=== PATIENT | male | born 1965 | race Caucasian/White ===

== ENCOUNTER 2018-06-16 13:31 | Emergency (ER) | payer OTHER ==
--- NOTE | 2018-06-16 13:58 | ER Document Report ---
HPI - HPI Pain Level: 4 Notes: Patient is a 52-year-old male who presents to the ED complaining of posterior lateral inferior rib pain status post injury 2 days ago. Patient states that he was walking down outdoor steps of an establishment when he was on the last 2 steps and slipped and hit his left side of his back off of the steps. Patient states he did not hit his head or lose consciousness. Patient states that he was sore thereafter, but was taking Motrin which seemed to help. Patient states that he was doing much better until last night when he twisted and felt a pop in that area. Patient states that he has had pain since then. Patient states that he does feel soreness in his left flank as well. Patient states that he has been eating and drinking without any difficulties. He has been urinating normally without any obvious hematuria and has been having normal bowel movements. He is not on any blood thinners. He does have a history of hypertension. Denies any headache, fever, head injury, neck pain, changes in vision/speech/mentation/hearing, URI, sore throat, chest pain, palpitations, syncope, cough, shortness of breath, wheeze, dyspnea, abdominal pain, nausea/ vomiting/diarrhea, urinary retention, dysuria, hematuria, loss of control of bowel or bladder, numbness/tingling, saddle anesthesia, muscle paralysis/ weakness, or rash. - ROS Systems Reviewed and Negative: Yes All other systems reviewed and negative Past Medical History - Social History Smoking Status: Never Smoker Family History: Reviewed & Not Pertinent - Past Medical History Cardiac Medical History: Reports: Hx Hypertension Denies: Hx Coronary Artery Disease, Hx Heart Attack Pulmonary Medical History: Denies: Hx Asthma, Hx Bronchitis, Hx COPD, Hx Pneumonia Neurological Medical History: Denies: Hx Cerebrovascular Accident, Hx Seizures Renal/ Medical History: Reports: Hx Kidney Stones GI Medical History: Musculoskeletal Medical History: Reports Hx Arthritis - Rt & Lt shoulders, knees Infectious Medical History: Past Surgical History: Reports: Hx Kidney (Renal Surgery) - kidney stones, Hx Orthopedic Surgery - Left knee, Right shoulder, Hx Tonsillectomy. Denies: Hx Pacemaker. Comment Only: Hx Abdominal Surgery - 2 hernia - Immunizations Hx Diphtheria, Pertussis, Tetanus Vaccination: Yes Vertical Provider Document - CONSTITUTIONAL Agree With Documented VS: Yes Notes: PHYSICAL EXAMINATION: GENERAL: Well-appearing, well-nourished and in no acute distress. LUNGS: Breath sounds clear to auscultation bilaterally and equal. No wheezes rales or rhonchi. HEART: Regular rate and rhythm without murmurs, rubs, gallops. ABDOMEN: Soft, nontender, nondistended abdomen. No guarding, no rebound. No masses appreciated. Normal bowel sounds present. No CVA tenderness bilaterally. No pulsatile mass Musculoskeletal: LE's b/l: FROM to passive/active. Strength 5+/5. No deficits noted. No bony tenderness of extremities. Back: + ecchymosis to the posteroinferior ribs. FROM to passive/active. Strength 5+/5. No vertebral point tenderness, stepoffs, or deformities. No other bony tenderness, erythema, swelling. SLR negative b/l. + tenderness to the left posteroinferior ribs. No SI jt tenderness. No foot drop. + tenderness to the left flank area. Extremities: No cyanosis, clubbing, or edema b/l. Peripheral pulses 2+. Capillary refill less than 2 seconds. NEUROLOGICAL: Normal speech, normal gait. Normal sensory, motor exams. Reflexes 2+ b/l. PSYCH: Normal mood, normal affect. SKIN: Warm, Dry, normal turgor, no rashes or lesions noted. - INFECTION CONTROL TRAVEL OUTSIDE OF THE [place] IN LAST 30 DAYS: No Course - Re-evaluation Re-evalutation: 06/16/18 14:48 Patient is an afebrile, well-hydrated, 52-year-old male who presents to the ED with posterior lateral inferior rib pain, suspect contusion. Vitals are acceptable without any significant tachycardia, tachypnea, or hypoxia. PE is otherwise unremarkable for any focal neurological deficits. X-ray was unremarkable for any acute pathology. Lungs are clear to auscultation bilaterally. Patient's abdomen is soft and nontender. A FAST exam was performed by Dr. Smith and was unremarkable for any acute pathology. Dr. Smith is in agreement with dispo/plan. Patient is nontoxic-appearing and is tolerating p.o. without difficulties. No other labs or imaging warranted at this time based on H&P. Low suspicion for any pneumothorax, fracture, sepsis, acute abdomen, disc herniation causing severe spinal stenosis, spinal abscess, AAA, or other acute systemic emergent condition at this time. Patient is aware that his condition can change from initial presentation and he needs to monitor symptoms closely and seek medical attention with any acute changes. I will send him home with a prescription for Lidoderm patches and naproxen. Conservative measures otherwise for symptoms. Recheck with your PCM in 3-5 days. Return to the ED with any worsening/concerning symptoms otherwise as reviewed in discharge. Patient is in agreement. - Vital Signs Vital signs: Temp Pulse Resp BP Pulse Ox 98.5 F 85 18 142/86 H 97 06/16/18 13:36 06/16/18 13:36 06/16/18 13:36 06/16/18 13:36 06/16/18 13:36 Discharge - Discharge Clinical Impression: Rib pain on left side Condition: Stable Disposition: HOME, SELF-CARE Instructions: Rib Contusion ([facility]) Additional Instructions: Rest, Ice, Compression Tylenol/ibuprofen as needed Light stretches daily Strength exercises as able Moist heat and massage may help F/u with your PCP in 3-5 days for a recheck Consider consult(s) with Orthopedics/physical therapy for ongoing/worsening symptoms Return to the ED with any worsening symptoms and/or development of fever, headache, chest pain, palpitations, syncope, shortness of breath, trouble breathing, abdominal pain, n/v/d, blood in stool/urine, loss of control of bowel /bladder, urinary retention, muscle weakness/paralysis, saddle anesthesia, numbness/tingling, or other worsening symptoms that are concerning to you. Prescriptions: Lidocaine [Lidoderm] 1 each TP DAILY #30 adh..patch Naproxen 500 mg PO BID PRN #30 tablet PRN Reason: Forms: Elevated Blood Pressure Referrals: ADELE OCHOA MD [Primary Care Provider] - Follow up in 3-5 days [facility] [Provider Group] - Follow up as needed
--- NOTE | 2018-06-16 14:47 | RADIOLOGY REPORT (SQ) ---
EXAM DESCRIPTION: RIBS LEFT W/PA CHEST COMPLETED DATE/TIME: 06/16/2018 2:20 pm REASON FOR STUDY: left posterolateral rib pain s/p injury COMPARISON: None. TECHNIQUE: Frontal view of the chest and additional views of the left ribs acquired. NUMBER OF VIEWS: PA chest. Four view rib detail. LIMITATIONS: None. FINDINGS: FRONTAL CXR: No acute infiltrates or effusions. No pneumothorax. RIBS: No displaced rib fractures. No lytic or blastic bony lesions. OTHER: No other significant finding. IMPRESSION: No acute disease. No acute left rib fracture seen. TECHNICAL DOCUMENTATION: JOB ID: [id number] 2010 [employer]- All Rights Reserved Reading location - IP/workstation name: [email or web address]
[2018-06-16 15:22] VITALS: BP 110/74
== END 2018-06-16 15:27 | disposition home or self-care (01) ==
LOC: ER 13:31
DX: S20.229A Contusion of unspecified back wall of thorax, initial encounter (principal); R07.81 Pleurodynia; X58.XXXA Exposure to other specified factors, initial encounter; R19.8 Other specified symptoms and signs involving the digestive system and abdomen; I10 Essential (primary) hypertension
CPT/HCPCS: 99283

== ENCOUNTER → 2019-07-10 | Outpatient (CLI) | payer OTHER ==
--- NOTE | 2019-07-10 14:51 | RADIOLOGY REPORT (SQ) ---
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 The route of agent administration: Intravenous. ADDITIONAL DRUGS AND DOSES: None. TECHNIQUE: Routine delayed images at 3 hours post radionuclide injection acquired of the bony skelet on including anterior and posterior whole-body projections and additional focused images as needed. LIMITATIONS: None. FINDINGS: BONES: There is focal uptake in the left 10th rib and in the right patella. KIDNEYS: Symmetric excretion without obstruction. OTHER: No other significant finding. IMPRESSION: Focal uptake in the left 10th rib and in the right patella. In May 2018 the patient jose d left rib trauma that was read as negative. It is possible that there was an occult injury. The up take in the patella may be degenerative. The overall appearance of the scan does not suggest metasta tic disease to bone, but metastases cannot entirely be excluded. COMMENT: Quality measure 147: Current bone scan is compared with any available plain radiographs, p rior bone scans, and CT/MRI. TECHNICAL DOCUMENTATION: JOB ID: [id number] [employer]- All Rights Reserved Reading location - IP/workstation name: [email or web address]
== END ==
LOC: RAD 08:07
PROVIDERS: ATTEND Radiology Radiation Oncology
DX: C61 Malignant neoplasm of prostate (principal)
CPT/HCPCS: 78306; A9561; Q9969

== ENCOUNTER 2020-04-30 10:21 | Emergency (ER) | payer OTHER ==
[2020-04-30] MEDS ORDERED: KETOROLAC TROMETHAMINE INJ/PF 30 MG/1 ML SDV IV ONE (11:06)
--- NOTE | 2020-04-30 11:08 | ER Document Report ---
ED General - General Chief Complaint: Productive Cough Stated Complaint: COUGH Time Seen by Provider: 04/30/20 10:51 Primary Care Provider: [facility] [Provider Group] - Follow up in 3-5 days IRAJ VILLALBA PA [Primary Care Provider] - Follow up as needed Mode of Arrival: Ambulatory Information source: Patient Notes: Patient presents with cough for the past 10 days with postnasal drip. Patient complains of sore throat. Patient complains of left flank pain that started yesterday. Patient denies any fever nausea or vomiting. Patient does complain of some mild shortness of breath. TRAVEL OUTSIDE OF THE [place] IN LAST 30 DAYS: No - HPI Onset/Duration: Worse Quality of pain: Achy, Sharp Pain Level: 5 Associated symptoms: Nonproductive cough, Shortness of breath. denies: Chest pain, Fever, Nausea, Vomiting Exacerbated by: Denies Relieved by: Denies Similar symptoms previously: No Recently seen / treated by doctor: No - Related Data Allergies/Adverse Reactions: Shellfish * [Shellfish] Adverse Reaction (Intermediate, Verified 04/30/20 11:43) IVP Dye Allergy (Severe, Uncoded 05/25/11 14:48) Anaphylaxis Past Medical History - General Information source: Patient - Social History Smoking Status: Never Smoker Frequency of alcohol use: None Drug Abuse: None Occupation: Administration Lives with: Family Family History: Reviewed & Not Pertinent - Past Medical History Cardiac Medical History: Reports: Hx Hypertension, Other - Tachycardia Pulmonary Medical History: Neurological Medical History: Denies: Hx Cerebrovascular Accident, Hx Seizures Renal/ Medical History: Reports: Hx Kidney Stones. Denies: Hx Peritoneal Dialysis Malignancy Medical History: Reports Hx Prostate Cancer GI Medical History: Musculoskeletal Medical History: Reports Hx Arthritis - Rt & Lt shoulders, knees, Reports Hx Gout Infectious Medical History: Past Surgical History: Reports: Hx Kidney (Renal Surgery) - kidney stones, Hx Orthopedic Surgery - Left knee, Right shoulder, Hx TonsillectomyComment Only: Hx Abdominal Surgery - 2 hernia - Immunizations Hx Diphtheria, Pertussis, Tetanus Vaccination: Yes Review of Systems - Review of Systems Constitutional: No symptoms reported. denies: Fever EENT: No symptoms reported Cardiovascular: No symptoms reported. denies: Chest pain Respiratory: Cough, Short of breath Gastrointestinal: No symptoms reported. denies: Abdominal pain, Nausea, Vomiting Genitourinary: Flank pain. denies: Dysuria Male Genitourinary: No symptoms reported Musculoskeletal: Back pain Skin: No symptoms reported Hematologic/Lymphatic: No symptoms reported Neurological/Psychological: No symptoms reported Physical Exam - Vital signs Vitals: Temp Pulse Resp BP Pulse Ox 98.3 F 88 20 145/95 H 94 04/30/20 10:35 04/30/20 10:35 04/30/20 10:35 04/30/20 10:35 04/30/20 10:35 - General General appearance: Appears well, Alert In distress: None - HEENT Head: Normocephalic, Atraumatic Eyes: Normal Conjunctiva: Normal Mouth/Lips: Normal Mucous membranes: Normal Neck: Normal, Supple. No: Lymphadenopathy - Respiratory Respiratory status: No respiratory distress Chest status: Nontender Breath sounds: Nonproductive cough. No: Rales, Rhonchi, Stridor, Wheezing Chest palpation: Normal - Cardiovascular Rhythm: Regular Heart sounds: S1 appreciated, S2 appreciated - Abdominal Inspection: Morbidly Obese Distension: No distension Bowel sounds: Normal Tenderness: Nontender Organomegaly: No organomegaly - Back Back: CVA tenderness - left - Extremities General upper extremity: Normal inspection, Normal strength General lower extremity: Normal inspection, Normal strength - Neurological Neuro grossly intact: Yes Cognition: Normal Chaya Coma Scale Eye Opening: Spontaneous Chaya Coma Scale Verbal: Oriented [place] Coma Scale Motor: Obeys Commands Chaay Coma Scale Total: 15 - Psychological Associated symptoms: Normal affect, Normal mood - Skin Skin Temperature: Warm Skin Moisture: Dry Skin Color: Normal Course - Re-evaluation Re-evalutation: 04/30/20 13:19 Patient's pain controlled at this time. Patient does have a ureteral stone noted on CT imaging. Patient without any fever, leukocytosis, or UTI. Patient does have mild elevation in his renal function tests. Will give some IV fluids and encourage outpatient follow-up with urology for recheck. Patient presents with nonobstructing kidney stone. Patient improved in the emergency department with IV morphine, Toradol, and antiemetics. Patient stable for outpatient management and followup with urology. Will discharge with oral pain medications and Flomax. Patient instructed to return if symptoms do not improve. 04/30/20 13:20 The patient was evaluated during the global Covid 19 pandemic, and that diagnosis was suspected/considered upon their initial presentation. Their evaluation, treatment and testing was consistent with current guidelines for patients who present with complaints or symptoms that may be related to Covid 19. 04/30/20 14:40 Patient tachycardic at discharge although does state that he has not yet taken his Cardizem today which he takes for rate control. Patient without any other symptoms. Patient encouraged to take his medication as soon as he gets home. 04/30/20 15:13 RN states that patient called as the pharmacy that his medicines were sent to is closed until Saturday, patient is requesting that prescriptions be sent to [facility] instead. RN encouraged to call the initial pharmacy to cancel the initial prescriptions that were E scribed there. - Vital Signs Vital signs: Temp Pulse Resp BP Pulse Ox 97.5 F 118 H 18 137/90 H 93 04/30/20 14:37 04/30/20 14:37 04/30/20 14:37 04/30/20 14:37 04/30/20 14:37 - Laboratory Result Diagrams: 04/30/20 11:37 04/30/20 11:37 Laboratory results interpreted by me: 04/30/20 04/30/20 11:37 11:56 Chloride 108 H Creatinine 1.39 H Est GFR (MDRD) Non-Af 54 L Urine Protein 30 H Urine Blood LARGE H Urine Ascorbic Acid 40 H Labs- All tests 24 hr 04/30/20 04/30/20 04/30/20 11:37 11:37 11:37 WBC 6.8 RBC 4.55 Hgb 14.7 Hct 41.9 MCV 92 MCH 32.4 MCHC 35.2 RDW 13.1 Plt Count 253 Lymph % (Auto) 21.8 [place] % (Auto) 8.6 Eos % (Auto) 1.1 Baso % (Auto) 0.8 Absolute Neuts (auto) 4.6 Absolute Lymphs (auto) 1.5 Absolute Monos (auto) 0.6 Absolute Eos (auto) 0.1 Absolute Basos (auto) 0.1 Seg Neutrophils % 67.7 Sodium 138.5 Potassium 4.7 Chloride 108 H Carbon Dioxide 22 Anion Gap 9 BUN 14 Creatinine 1.39 H Est GFR ( Amer) > 60 Est GFR (MDRD) Non-Af 54 L Glucose 107 Calcium 9.2 Urine Color Urine Appearance Urine pH Ur Specific [place] Urine Protein Urine Glucose (UA) Urine Ketones Urine Blood Urine Nitrite Urine Bilirubin Urine Urobilinogen Ur Leukocyte Esterase Urine WBC (Auto) Urine RBC (Auto) Squamous Epi Cells Auto Urine Mucus (Auto) Urine Ascorbic Acid Influenza A (Rapid) NEGATIVE Influenza B (Rapid) NEGATIVE 04/30/20 11:56 WBC RBC Hgb Hct MCV MCH MCHC RDW Plt Count Lymph % (Auto) [place] % (Auto) Eos % (Auto) Baso % (Auto) Absolute Neuts (auto) Absolute Lymphs (auto) Absolute Monos (auto) Absolute Eos (auto) Absolute Basos (auto) Seg Neutrophils % Sodium Potassium Chloride Carbon Dioxide Anion Gap BUN Creatinine Est GFR ( Amer) Est GFR (MDRD) Non-Af Glucose Calcium Urine Color YELLOW Urine Appearance SLIGHTLY-CLOUDY Urine pH 5.0 Ur Specific [place] 1.030 Urine Protein 30 H Urine Glucose (UA) NEGATIVE Urine Ketones NEGATIVE Urine Blood LARGE H Urine Nitrite NEGATIVE Urine Bilirubin NEGATIVE Urine Urobilinogen NEGATIVE Ur Leukocyte Esterase NEGATIVE Urine WBC (Auto) 3 Urine RBC (Auto) >182 Squamous Epi Cells Auto <1 Urine Mucus (Auto) MANY Urine Ascorbic Acid 40 H Influenza A (Rapid) Influenza B (Rapid) - Diagnostic Test Radiology reviewed: Reports reviewed Discharge - Discharge Clinical Impression: Kidney stone on left side, Encounter for screening laboratory testing for COVID-19 virus, Abnormal renal function test Upper respiratory infection Qualifiers: URI type: unspecified URI Qualified Code(s): J06.9 - Acute upper respiratory infection, unspecified Condition: Stable Disposition: HOME, SELF-CARE Instructions: Upper Respiratory Illness ([facility]) Additional Instructions: Return immediately for any new or worsening symptoms: Fever, vomiting, worsening pain or any concerning new symptoms Followup with your primary care provider, call tomorrow to make a followup appointment Follow-up with a urologist for further evaluation, call Saturday to make a follow- up appointment You had elevation in 1 of your renal function tests. Your primary doctor or urologist can check this finding for you. KIDNEY STONE: You are passing or have passed a kidney stone. These stones are usually due to increased calcium or uric acid concentrations in your urine. Stones within the kidney itself are not painful. The pain occurs as the stone leaves the kidney to pass down the long tube, called the ureter, leading to the bladder. If the stone is small, it will usually pass by itself. Most patients can pass the stone at home. You will usually receive medications for pain, nausea or vomiting, and sometimes a medication to assist in passing the kidney stone. However, if the pain is very severe or if vomiting prevents you from taking oral pain medications, you may need to return for further treatment. Drink three or four quarts of fluids per day. You will be given pain medication (if needed) and urine strainers. Strain all your urine to see if the stone passes. If your doctor has asked you to bring the stone in for analysis, return with the stone once it has passed. Return if pain or vomiting become severe, if you develop a high fever, if you are unable to pass your urine, or if other unusual symptoms occur. TORADOL INJECTION: You have been given an injection of ketorolac tromethamine (Toradol). This is an excellent, safe drug for pain control. It also has potent antiinflammatory action. You should have significant pain relief within about one hour. Toradol is not addicting and is non-sedating. It does not interfere with driving or work. Call or return if you develop itching, hives, shortness of breath, or rash. PAIN MEDICATION INJECTION: You have received an injection of a pain medication. You should experience significant pain relief within 45 minutes. This drug is a narcotic -- it will impair your judgement, slow your reaction time and make you sleepy (as well as relieve your pain). Narcotics also can cause nausea. You should not drive, work with machinery, or perform any task requiring mental alertness until all effects of the medication are gone -- six to eight hours. Do not take any alcohol, or sedatives, and do not take any other medication without checking with your physician. ANTINAUSEA MEDICATION: You have been given a medication to suppress nausea and vomiting. This type of medication can be given as a shot, pill, or suppository. It will usually last for many hours. Pills and shots usually last six to eight hours, suppositories last about 12 hours. For the typical illness, only one or two doses of the medication may be necessary. Mild lightheadedness may occur. This type of medicine can cause drowsiness. Do not drive or operate dangerous machinery while under its influence. Do not mix with alcohol. See your doctor at once if you have muscle spasms or tightness, or uncontrollable motions (particularly of the neck, mouth, or jaw). Persistent vomiting or severe lightheadedness should also be evaluated by the physician. ORAL NARCOTIC MEDICATION: You have been given a prescription for pain control. This medication is a narcotic. It's best taken with food, as nausea can result if taken on an empty stomach. Don't operate machinery or drive within six hours of taking this medication. Do not combine this medicine with alcohol, or with any medication which can cause sedation (such as cold tablets or sleeping pills) unless you get permission from the physician. Narcotics tend to cause constipation. If possible, drink plenty of fluids and eat a diet high in fiber and fruits. Please be aware that prescription narcotics also have the potential for abuse. People become addicted to these medications because of the general sense of wellbeing that they induce. This feeling along with a significant reduction in tension, anxiety, and aggression provides a stimulating seductive quality to these drugs. Once your pain is under control, we encourage you to discard your unused narcotics. FLOMAX (tamsulosin): Flomax is a medicine that shrinks the prostate gland. It helps relieve symptoms of benign prostatic hypertrophy, such as frequent urination, weak stream, and inadequate emptying. It has been shown to dilate the ureter (tube leading from the kidney to the bladder) and help in passing kidney stones Flomax usually causes no side effects. You may notice slight tiredness and dizziness for a few days. Some patients develop nasal congestion. Rarely, im potence can occur. If the symptoms are bothersome and don't improve with continued use, call your doctor. Contact your doctor or return if you have fainting spells, severe weakness or dizziness, shortness of breath, or rash. FOLLOW-UP CARE: If you have been referred to a physician for follow-up care, call the physicians office for an appointment as you were instructed or within the next two days. If you experience worsening or a significant change in your symptoms, notify the physician immediately or return to the Emergency Department at any time for re-evaluation. Prescriptions: Tamsulosin HCl [Flomax 0.4 mg Cap.sr] 0.4 mg PO DAILY #7 cap.sr.24h Oxycodone HCl/Acetaminophen [Percocet 5-325 mg Tablet] 1 tab PO ASDIR PRN #15 tablet PRN Reason: Ondansetron [Zofran Odt 4 mg Tablet] 1 tab PO Q6H #15 tab.rapdis Forms: Return to Work Referrals: IRAJ VILLALBA PA [Primary Care Provider] - Follow up as needed [facility] [Provider Group] - Follow up in 3-5 days
--- NOTE | 2020-04-30 11:27 | RADIOLOGY REPORT (SQ) ---
EXAM DESCRIPTION: CHEST SINGLE VIEW IMAGES COMPLETED DATE/TIME: 04/30/2020 11:15 am REASON FOR STUDY: cough COMPARISON: 2010 EXAM PARAMETERS: NUMBER OF VIEWS: One view. TECHNIQUE: Single frontal radiographic view of the chest acquired. RADIATION DOSE: NA LIMITATIONS: None. FINDINGS: LUNGS AND PLEURA: No opacities, masses or pneumothorax. No pleural effusion. MEDIASTINUM AND HILAR STRUCTURES: No masses. Contour normal. HEART AND VASCULAR STRUCTURES: Heart normal in size. Normal vasculature. BONES: No acute findings. HARDWARE: None in the chest. OTHER: No other significant finding. IMPRESSION: NO ACUTE RADIOGRAPHIC FINDING IN THE CHEST. TECHNICAL DOCUMENTATION: JOB ID: [id number] 2010 [email or web address]- All Rights Reserved Reading location - IP/workstation name: [email or web address]
[2020-04-30 12:19] LABS: ABSOLUTE BASOPHILS # (AUTO) 0.1 10^3/uL (0.0-0.2); ABSOLUTE EOSINOPHILS # (AUTO) 0.1 10^3/uL (0.0-0.6); ABSOLUTE LYMPHOCYTES (AUTO) 1.5 10^3/uL (0.5-4.7); ABSOLUTE MONOCYTES (AUTO) 0.6 10^3/uL (0.1-1.4); ABSOLUTE NEUT (AUTO) 4.6 10^3/uL (1.7-8.2); BASOPHILS % (AUTO) 0.8 % (0-2); EOSINOPHILS % (AUTO) 1.1 % (0-6); HEMATOCRIT 41.9 % (37.9-51.0); HEMOGLOBIN 14.7 g/dL (13.5-17.0); LYMPHOCYTES % (AUTO) 21.8 % (13-45); MEAN CORPUSCULAR HEMOGLOBIN 32.4 pg (27.0-33.4); MEAN CORPUSCULAR HGB CONC 35.2 g/dL (32.0-36.0); MEAN CORPUSCULAR VOLUME 92 fl (80-97); MONOCYTES % (AUTO) 8.6 % (3-13); PLATELET COUNT 253 10^3/uL (150-450); RED BLOOD COUNT 4.55 10^6/uL (4.35-5.55); RED CELL DISTRIBUTION WIDTH 13.1 % (11.5-14.0); SEGMENTED NEUTROPHILS % (AUTO) 67.7 % (42-78); TOTAL CELLS COUNTED % (AUTO) 100 %; WHITE BLOOD COUNT 6.8 10^3/uL (4.0-10.5)
[2020-04-30 12:21] LABS: APPEARANCE,URINE SLIGHTLY-CLOUDY; BILIRUBIN,URINE NEGATIVE (NEGATIVE); COLOR,URINE YELLOW; GLUCOSE, URINE NEGATIVE (NEGATIVE); KETONES,URINE NEGATIVE (NEGATIVE); LEUKOCYTE ESTERASE,URINE NEGATIVE (NEGATIVE); NITRITE,URINE NEGATIVE (NEGATIVE); PROTEIN,URINE 30 mg/dL (NEGATIVE); UROBILINOGEN,URINE NEGATIVE mg/dL (<2.0)
--- NOTE | 2020-04-30 12:22 | RADIOLOGY REPORT (SQ) ---
EXAM DESCRIPTION: CT ABD/PELVIS NO ORAL OR IV IMAGES COMPLETED DATE/TIME: 04/30/2020 12:02 pm REASON FOR STUDY: L flank pain COMPARISON: None. TECHNIQUE: CT scan of the abdomen and pelvis performed without intravenous or oral contrast. Images reviewed with lung, soft tissue, and bone windows. Reconstructed coronal and sagittal MPR images revi ewed. All images stored on PACS. All CT scanners at this facility use dose modulation, iterative reconstruction, and/or weight based d osing when appropriate to reduce radiation dose to as low as reasonably achievable (ALARA). [facility]: Dose Right [facility]: CareDose [facility]: Dose Right [facility]: Teradose 4D [facility]: Smart Fitzeal RADIATION DOSE: CT Rad equipment meets quality standard of care and radiation dose reduction techniq ues were employed. CTDIvol: 19.2 mGy. DLP: 1097 mGy-cm.mGy. LIMITATIONS: None. FINDINGS: LOWER CHEST: No significant findings. No nodules or infiltrates. NON-CONTRASTED LIVER, SPLEEN, ADRENALS: Evaluation limited by lack of IV contrast. No identified sign ificant masses. PANCREAS: No masses. No peripancreatic inflammatory changes. GALLBLADDER: No calcified stones. No inflammatory changes to suggest cholecystitis. RIGHT KIDNEY AND URETER: No cysts identified. No solid masses. No calcified stones. No hydronephrosis or hydroureter. LEFT KIDNEY AND URETER: No cysts identified. No solid masses. Multiple tiny parenchymal calcified st ones. 3-4 mm calcified stone in the upper left ureter with mild hydronephrosis - hydroureter. AORTA AND RETROPERITONEUM: No aneurysm. No retroperitoneal masses or adenopathy. BOWEL AND PERITONEAL CAVITY: No obvious masses or inflammatory changes. Sigmoid diverticulosis.No gladys e fluid. APPENDIX: Normal. PELVIS, BLADDER, AND ABDOMINAL WALL: No free fluid. Unremarkable bladder. BONES: No acute findings. OTHER: No other significant finding. IMPRESSION: 3-4 mm calcified stone in the upper left ureter with mild hydronephrosis - hydroureter. TECHNICAL DOCUMENTATION: JOB ID: [id number] [place]-72 Quality ID # [id number]: Final reports with documentation of one or more dose reduction techniques (e.g., Au tomated exposure control, adjustment of the mA and/or kV according to patient size, use of iterative reconstruction technique) 2010 [employer]- All Rights Reserved Reading location - IP/workstation name: [email or web address]
[2020-04-30 12:34] LABS: A TYPE INFLUENZA AG NEGATIVE (NEGATIVE); B INFLUENZA AG NEGATIVE (NEGATIVE)
[2020-04-30] MEDS ORDERED: TAMSULOSIN HCL 0.4 MG CAP.SR.24H PO ONE (12:35)
[2020-04-30] MEDS ORDERED: MORPHINE SULFATE 10 MG/ML INJ IV ONE (12:35)
[2020-04-30 12:38] LABS: ANION GAP 9 (5-19); BLOOD UREA NITROGEN 14 mg/dL (7-20); CALCIUM 9.2 mg/dL (8.4-10.2); CARBON DIOXIDE 22 mmol/L (22-30); CHLORIDE 108 mmol/L (98-107); GLUCOSE 107 mg/dL (75-110); POTASSIUM 4.7 mmol/L (3.6-5.0)
[2020-04-30] MEDS ORDERED: NORMAL SALINE 1000 ML 1,000 ML IV ONE (13:18)
[2020-04-30 14:51] VITALS: BP 137/90
== END 2020-04-30 14:55 | disposition home or self-care (01) ==
LOC: ER 10:21
DX: N20.0 Calculus of kidney (principal); N20.1 Calculus of ureter; R94.4 Abnormal results of kidney function studies; J06.9 Acute upper respiratory infection, unspecified; R05 Cough; R09.82 Postnasal drip; J02.9 Acute pharyngitis, unspecified; R10.9 Unspecified abdominal pain; R06.02 Shortness of breath; I10 Essential (primary) hypertension; R00.0 Tachycardia, unspecified; Z20.828 Contact with and (suspected) exposure to other viral communicable diseases
CPT/HCPCS: 99284; 96361; 96374; 96375; 36415; 85025; 87635; 80048; 81001; 87804; 71045; 74176; J1885; J2270; J7030; C9803

== ENCOUNTER 2020-05-19 12:34 | Emergency (ER) | payer OTHER ==
[2020-05-19] MEDS ORDERED: DIPH/PERTUSS(ACELL)/TETANUS VAC/PF 0.5 ML SYR (>=10YO) IM ONE (12:53)
--- NOTE | 2020-05-19 12:54 | ER Document Report ---
ED Medical Screen (RME) - General Chief Complaint: Abscess Stated Complaint: ABSCESS Time Seen by Provider: 05/19/20 12:52 Primary Care Provider: IRAJ VILLALBA PA [Primary Care Provider] - Follow up as needed Notes: This 54-year-old male who states he has a half dollar size cyst on his scrotum he has had a much smaller before he was able to pop them on his own this is quite large and painful TRAVEL OUTSIDE OF THE [place] IN LAST 30 DAYS: No - Related Data Allergies/Adverse Reactions: Shellfish * [Shellfish] Adverse Reaction (Intermediate, Verified 04/30/20 11:43) IVP Dye Allergy (Severe, Uncoded 05/25/11 14:48) Anaphylaxis Home Medications: allupurinol, cetirizine, montelukast, diltiazem, tadalafil, flonase, maxult, Past Medical History - Social History Chew tobacco use (# tins/day): No Drug Abuse: None - Past Medical History Cardiac Medical History: Reports: Hx Hypertension Denies: Hx Coronary Artery Disease, Hx Heart Attack Pulmonary Medical History: Denies: Hx Asthma, Hx Bronchitis, Hx COPD, Hx Pneumonia Neurological Medical History: Denies: Hx Cerebrovascular Accident, Hx Seizures Renal/ Medical History: Reports: Hx Kidney Stones. Denies: Hx Peritoneal Dialysis Malignancy Medical History: Reports Hx Prostate Cancer GI Medical History: Musculoskeltal Medical History: Reports Hx Arthritis - Rt & Lt shoulders, knees, Reports Hx Gout Infectious Medical History: Past Surgical History: Reports: Hx Kidney (Renal Surgery) - kidney stones, Hx Orthopedic Surgery - Left knee, Right shoulder, Hx Tonsillectomy. Denies: Hx Pacemaker. Comment Only: Hx Abdominal Surgery - 2 hernia - Immunizations Hx Diphtheria, Pertussis, Tetanus Vaccination: Yes Physical Exam - Vital signs Vitals: Temp Pulse Resp BP Pulse Ox 98.1 F 128 H 18 115/73 95 05/19/20 12:39 05/19/20 12:39 05/19/20 12:39 05/19/20 12:39 05/19/20 12:39 Course - Vital Signs Vital signs: Temp Pulse Resp BP Pulse Ox 98.1 F 128 H 18 115/73 95 05/19/20 12:49 05/19/20 12:39 05/19/20 12:39 05/19/20 12:39 05/19/20 12:39 Doctor's Discharge - Discharge Referrals: IRAJ VILLALBA PA [Primary Care Provider] - Follow up as needed
--- NOTE | 2020-05-19 15:17 | RADIOLOGY REPORT (SQ) ---
EXAM DESCRIPTION: U/S SCROTUM W/DOPPLER IMAGES COMPLETED DATE/TIME: 05/19/2020 3:02 pm REASON FOR STUDY: pain COMPARISON: None. TECHNIQUE: Static and realtime colon scale imaging of the scrotum and testes. Selected color Doppler and spectral images recorded to document blood flow. LIMITATIONS: None. FINDINGS: RIGHT: TESTICLE: Normal size. Normal echotexture. Normal blood flow. No mass. EPIDIDYMIS: Normal. HYDROCELE OR VARICOCELE: No. HERNIA OR EXTRA-TESTICULAR MASS: No. LEFT: TESTICLE: Normal size. Normal echotexture. Normal blood flow. No mass. EPIDIDYMIS: Normal. HYDROCELE OR VARICOCELE: No. HERNIA OR EXTRA-TESTICULAR MASS: No. OTHER: Focused evaluation of the patient's palpable abnormality correlates to a 2.1 x 2.3 x 1.9 cm pr edominantly well-circumscribed structure within the subcutaneous soft tissues in the midline. This l esion demonstrates heterogeneous echogenicity with some posterior acoustic enhancement. Doppler inte rrogation demonstrates surrounding hyperemia. IMPRESSION: The patient's palpable abnormality correlates to a 2.1 x 2.3 x 2.9 cm subcutaneous soft tissue collection ; given the appearance of surrounding hyperemia, the likely represents a developing abscess. TECHNICAL DOCUMENTATION: JOB ID: [id number] 2010 [employer]- All Rights Reserved Reading location - IP/workstation name: [email or web address]
--- NOTE | 2020-05-19 17:39 | ER Document Report ---
ED General - General Chief Complaint: Abscess Stated Complaint: ABSCESS Time Seen by Provider: 05/19/20 12:52 Primary Care Provider: IRAJ VILLALBA PA [Primary Care Provider] - Follow up as needed TRAVEL OUTSIDE OF THE [place] IN LAST 30 DAYS: No - HPI Notes: Patient is a 54-year-old male who presents to the emergency department for evaluation of a lump on his scrotum that he believes to be an abscess. 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 He states he first noticed a bump on Saturday. He attempted to squeeze it. Nothing came out. 2 days later he attempted to squeeze it again. Since that it has grown. He has had chills over the last 48 hours. He has noted that his heart rate has been high as well. No yahaira fevers. No vomiting. He states he has pain when he manipulates the area, but it really does not hurt when he is recumbent. He denies any history of diabetes. - Related Data Allergies/Adverse Reactions: Shellfish * [Shellfish] Adverse Reaction (Intermediate, Verified 04/30/20 11:43) IVP Dye Allergy (Severe, Uncoded 05/25/11 14:48) Anaphylaxis Home Medications: allupurinol, cetirizine, montelukast, diltiazem, tadalafil, flonase, maxalt, Past Medical History - General Information source: Patient - Social History Smoking Status: Never Smoker Chew tobacco use (# tins/day): No Drug Abuse: None Family History: Reviewed & Not Pertinent, COPD, Other - Dementia - Past Medical History Cardiac Medical History: Reports: Hx Hypertension Denies: Hx Coronary Artery Disease, Hx Heart Attack Pulmonary Medical History: Denies: Hx Asthma, Hx Bronchitis, Hx COPD, Hx Pneumonia Neurological Medical History: Denies: Hx Cerebrovascular Accident, Hx Seizures Renal/ Medical History: Reports: Hx Kidney Stones. Denies: Hx Peritoneal Dialysis Malignancy Medical History: Reports Hx Prostate Cancer GI Medical History: Musculoskeletal Medical History: Reports Hx Arthritis - Rt & Lt shoulders, knees, Reports Hx Gout Infectious Medical History: Past Surgical History: Reports: Hx Genitourinary Surgery - prostatectomy, Hx Kidney (Renal Surgery) - kidney stones, Hx Orthopedic Surgery - Left knee, Right shoulder, Hx Tonsillectomy. Denies: Hx Pacemaker. Comment Only: Hx Abdominal Surgery - 2 hernia - Immunizations Hx Diphtheria, Pertussis, Tetanus Vaccination: Yes Review of Systems - Review of Systems Constitutional: See HPI Male Genitourinary: See HPI -: Yes All other systems reviewed and negative Physical Exam - Vital signs Vitals: Temp Pulse Resp BP Pulse Ox 98.1 F 128 H 18 115/73 95 05/19/20 12:39 05/19/20 12:39 05/19/20 12:39 05/19/20 12:39 05/19/20 12:39 - Notes Notes: This is an obese 54-year-old male who appears his stated age, no acute distress. Vital signs reviewed, please refer to chart. Head is normocephalic, atraumatic. Pupils equal round, reactive to light. Neck is supple without meningismus. Heart is regular, tachycardic with normal S1, S2.. Lungs are clear to auscultation bilaterally. Abdomen is soft, nontender, normoactive bowel sounds throughout. Scrotal exam was performed with SEAN Musa, present in the room. He is moderate amount of scrotal edema. He has what appears to be a subcutaneous abscess, approximately 2.5 cm, with a small pustule noted. I do not appreciate any crepitance. He has no testicular tenderness. Extremities without cyanosis, clubbing. 1+ pretibial pitting edema. Posterior calves are nontender. Peripheral pulses are equal. Skin is warm and dry. Course - Re-evaluation Re-evalutation: 05/19/20 17:35 patient presents to the emergency department for evaluation. He had imaging as ordered through triage. The patient, however, remains tachycardic. He is obese. I am concerned about a more systemic process in this gentleman who has had chills. In addition to the scrotal abscess. Laboratory investigations are ordered. IV fluids, EKG ordered as well. Patient is currently stable, we will continue to monitor. 05/19/20 18:32 Patient's blood work is unremarkable. By the time he had his EKG, his heart rate was normal. I will proceed with incision and drainage, close surgical follow-up. 05/19/20 19:29 Incision and drainage unremarkable. Please see procedure note. Patient tolerated this well. I will have him follow-up with the surgical clinic. He will be sent on Augmentin and [place], he is to return to the ED with worsening. - Vital Signs Vital signs: Temp Pulse Resp BP Pulse Ox 98.6 F 115 H 20 137/95 H 98 05/19/20 15:34 05/19/20 15:34 05/19/20 15:34 05/19/20 15:34 05/19/20 15:34 - Laboratory Result Diagrams: 05/19/20 17:35 05/19/20 17:35 - Diagnostic Test Radiology reviewed: Reports reviewed Radiology results interpreted by me: 05/19/20 19:30 Scrotum Ultrasound 05/19/20 12:54 IMPRESSION: The patient's palpable abnormality correlates to a 2.1 x 2.3 x 2.9 cm subcutaneous soft tissue collection ; given the appearance of surrounding hyperemia, the likely represents a developing abscess. Procedures - Incision and Drainage Groin Time completed: 17:18 Type: Simple Anesthetic type: 1% Lidocaine mL's of anesthetic: 3 Blade size: 11 I&D procedure: Betadine prep applied, Chlorprep applied, Iodoform packing placed Incision Method: Incision made by scalpel Notes: 05/19/20 19:30 The procedure was explained in great detail. Questions were sought and answered. Consent was signed and placed on the chart. The area was cleansed and draped in the usual sterile fashion. It was anesthetized with approximately 2 cc of 1% Xylocaine, but the wall was very thin and friable. A 2 cm incision was placed using an 11 blade. A moderate amount of foul-smelling purulent material and blood were drained from the area. The wound was explored, the cavity explored. No septations encountered. The area was thoroughly irrigated. Iodoform gauze was loosely placed, primarily to keep the incision open. The patient tolerated this well, no complications noted. Discharge - Discharge Clinical Impression: Scrotal abscess Condition: Stable Disposition: HOME, SELF-CARE Instructions: Abscess ([facility]), Post Incision and Drainage Prescriptions: Hydrocodone/Acetaminophen [[place]wall 5-325 Tablet] 1 each PO Q6HP PRN #10 tablet PRN Reason: Amoxicillin/Potassium Clav [Augmentin 875-125 Tablet] 1 tab PO Q12 #13 tablet Referrals: IRAJ VILLALBA PA [Primary Care Provider] - Follow up as needed FRANKLIN GARZA MD [ACTIVE STAFF] - Follow up as needed
[2020-05-19 17:48] LABS: ABSOLUTE BASOPHILS # (AUTO) 0.1 10^3/uL (0.0-0.2); ABSOLUTE EOSINOPHILS # (AUTO) 0.1 10^3/uL (0.0-0.6); ABSOLUTE LYMPHOCYTES (AUTO) 1.9 10^3/uL (0.5-4.7); ABSOLUTE MONOCYTES (AUTO) 0.8 10^3/uL (0.1-1.4); ABSOLUTE NEUT (AUTO) 5.9 10^3/uL (1.7-8.2); EOSINOPHILS % (AUTO) 1.4 % (0-6); HEMATOCRIT 42.9 % (37.9-51.0); LYMPHOCYTES % (AUTO) 22.1 % (13-45); MEAN CORPUSCULAR HEMOGLOBIN 32.5 pg (27.0-33.4); MEAN CORPUSCULAR VOLUME 93 fl (80-97); MONOCYTES % (AUTO) 8.6 % (3-13); PLATELET COUNT 275 10^3/uL (150-450); RED BLOOD COUNT 4.63 10^6/uL (4.35-5.55); RED CELL DISTRIBUTION WIDTH 13.1 % (11.5-14.0); SEGMENTED NEUTROPHILS % (AUTO) 66.9 % (42-78); TOTAL CELLS COUNTED % (AUTO) 100 %; WHITE BLOOD COUNT 8.8 10^3/uL (4.0-10.5)
[2020-05-19] MEDS: NORMAL SALINE 1000 ML 1,000 ML IV PRN ×2 (18:02→18:28)
[2020-05-19 18:05] LABS: ALBUMIN 4.3 g/dL (3.5-5.0); ALKALINE PHOSPHATASE 74 U/L (38-126); ANION GAP 9 (5-19); ASPARTATE AMINO TRANSFERASE 26 U/L (17-59); BILIRUBIN,TOTAL 0.5 mg/dL (0.2-1.3); BLOOD UREA NITROGEN 16 mg/dL (7-20); CALCIUM 9.4 mg/dL (8.4-10.2); CARBON DIOXIDE 23 mmol/L (22-30); CHLORIDE 106 mmol/L (98-107); GLUCOSE 98 mg/dL (75-110); POTASSIUM 4.3 mmol/L (3.6-5.0); TOTAL PROTEIN 7.7 g/dL (6.3-8.2)
[2020-05-19] MEDS ORDERED: LIDOCAINE 1% INJ-PF (10 MG/ML) 30 ML SDV INJ ONE (18:30)
[2020-05-19] MEDS ORDERED: AMOXICILLIN TR/POT CLAVULANATE 875-125 MG TAB PO ONE (18:32)
[2020-05-19] MEDS ORDERED: HYDROCODONE/ACETAMINOPHEN 5-325 MG (6 TAB/ER DISP) PO PRN (19:35)
[2020-05-19 20:03] VITALS: BP 160/98
--- NOTE | 2020-05-20 19:37 | EKG REPORT ---
SEVERITY:- NORMAL ECG - SINUS RHYTHM : Confirmed by: Christiano Martin 20-May-2020 19:37:11
== END 2020-05-19 20:00 | disposition home or self-care (01) ==
LOC: ER 12:34
PROC: 0H9AXZZ Drainage of Inguinal Skin, External Approach (ICD-10-PCS; principal; 2020-05-19)
DX: N49.2 Inflammatory disorders of scrotum (principal); Z88.8 Allergy status to other drugs, medicaments and biological substances; Z79.899 Other long term (current) drug therapy; I10 Essential (primary) hypertension; E66.9 Obesity, unspecified
CPT/HCPCS: 93005; 99284; 96360; 90471; 36415; 87040; 83605; 85025; 80053; 76870; 93976; 90715; 93010; 10060; J7030; J3490